=== PATIENT | male | born 1965 | race Caucasian/White ===

== ENCOUNTER 2017-03-04 17:47 | Emergency (ER) | payer OTHER ==
[2017-03-04] MEDS: IV NORMAL SALINE 1000ML BAG 1,000 ML IV (18:30)
[2017-03-04 18:33] LABS: ADD MAN DIFF? NO
[2017-03-04 18:35] LABS: BASO # 0.1 x10^3/uL (0.0-0.2); BASO % 0 % (0-3); EOS % 0 % (0-3); HEMATOCRIT 48.5 % (39.0-53.0); HEMOGLOBIN 16.6 g/dL (13.0-17.5); LYMPH # 1.5 x10^3/uL (1.0-4.8); LYMPH % 11 % (24-48); MEAN CORPUSCULAR HEMOGLOBIN 31 pg (25-35); MEAN CORPUSCULAR HGB CONC 34 g/dL (31-37); MEAN CORPUSCULAR VOLUME 91 fL (79-100); MONO % 4 % (0-9); NEUT % 84 % (31-73); PLATELET COUNT 197 x10^3/uL (140-400); RED BLOOD COUNT 5.35 x10^6/uL (4.30-5.70); RED CELL DISTRIBUTION WIDTH 13.4 % (11.5-14.5); WHITE BLOOD COUNT 13.5 x10^3/uL (4.0-11.0)
[2017-03-04] MEDS: KETOROLAC 30 MG/ML INJ. IV (18:36)
[2017-03-04] MEDS: ONDANSETRON PF 4 MG/2 ML VIAL. IV (18:36)
[2017-03-04 19:12] LABS: ANION GAP 13 (6-14); BLOOD UREA NITROGEN 21 mg/dL (8-26); BUN/CREATININE RATIO 21 (6-20); CALCIUM 9.1 mg/dL (8.5-10.1); CARBON DIOXIDE 26 mmol/L (21-32); CHLORIDE 104 mmol/L (98-107); GFR 78.8; GLUCOSE 121 mg/dL (70-99); POTASSIUM 4.2 mmol/L (3.5-5.1); SODIUM 143 mmol/L (136-145)
[2017-03-04 19:18] LABS: ALBUMIN 4.5 g/dL (3.4-5.0); ALBUMIN/GLOBULIN RATIO 1.3 (1.0-1.7); ALK PHOS 57 U/L (46-116); ALT (SGPT) 35 U/L (16-63); AST (SGOT) 23 U/L (15-37); TOTAL BILIRUBIN 0.6 mg/dL (0.2-1.0); TOTAL PROTEIN 8.1 g/dL (6.4-8.2)
[2017-03-04] MEDS: HYDROmorphone 2 MG/ML VIAL IV ×2 (19:35→20:53)
[2017-03-04 19:57] LABS: BILIRUBIN,URINE NEGATIVE (NEG); GLUCOSE,URINE NEGATIVE (NEG); NITRITE,URINE NEGATIVE (NEG); PROTEIN,URINE 30 mg/dL (NEG-TRACE); UROBILINOGEN,URINE 0.2 mg/dL (0.2 mg/dL)
[2017-03-04 20:11] LABS: BACTERIA,URINE FEW /HPF (0-FEW); RBC,URINE TNTC /HPF (0-2); SQUAMOUS EPITHELIAL CELL,UR OCC /LPF
[2017-03-04] MEDS: TAMSULOSIN 0.4 MG CAP.ER.24H. PO (20:53)
== END 2017-03-04 21:30 | disposition home or self-care (01) ==
LOC: ER 17:47
DX: N23 Unspecified renal colic (principal); D72.829 Elevated white blood cell count, unspecified; K46.9 Unspecified abdominal hernia without obstruction or gangrene; R31.29 Other microscopic hematuria; Z87.442 Personal history of urinary calculi
CPT/HCPCS: 36415; 74176; 80053; 81001; 83690; 85025; 96361; 96374; 96375; 96376; 99283; 99285-25; J1170; J1885; J2405; J7030

== ENCOUNTER → 2020-03-12 | Outpatient (CLI) | payer OTHER ==
[2017-03-04 21:04] VITALS: BP 127/81
[~2020-03-12] MED LIST: HYDR-3164 PO; TAMS0.4C97 PO
--- NOTE | 2020-03-12 16:37 | KCIC ---
MR CERVICAL SPINE WO History:Reason: OSTEOARTHITIS OF SPINE/CERVICAL RADICULOPATHY / Spl. Instructions: / History: Neck p ain x 2 mths. LUE pain and numbness, NKI. Technique: Multiplanar, multi sequential noncontrast MR imaging was performed of the cervical spine. Comparison: None Findings: Normal vertebral body height and alignment. No fracture. Degenerative endplate edema most prominent C 3-C4 and C5-C6. No pathologic signal abnormality within the cervical spinal cord. C2-C3: Left central posterior disc osteophyte complex. No canal narrowing. Uncovertebral and facet a rthropathy. Moderate left neuroforaminal narrowing. No right neuroforaminal narrowing. C3-C4: Posterior disc osteophyte complex. Mild canal narrowing. Uncovertebral and facet arthropathy. Severe bilateral neuroforaminal narrowing. C4-C5: No canal narrowing. Uncovertebral and facet arthropathy. Moderate bilateral neuroforaminal na rrowing. C5-C6: Posterior disc osteophyte complex eccentric to the left. Mild canal narrowing. Cord flattenin g most prominent left. Uncovertebral and facet arthropathy. Severe left and mild right neuroforaminal narrowing. C6-C7: Disc osteophyte complex with bilateral paracentral disc protrusions. Moderate to severe cuco l narrowing with cord flattening. Uncovertebral and facet arthropathy. Severe left and moderate right neuroforaminal narrowing. C7-T1: Paracentral disc protrusions. Mild canal narrowing. Cord flattening most prominent left. Unco vertebral and facet arthropathy. No neuroforaminal narrowing. Upper thoracic facet arthropathy with mild neural foraminal narrowing. Impression: 1. Moderate multilevel cervical spondylosis most prominent C6-C7. 2. C6-C7 disc protrusion contributing to moderate to severe canal narrowing with cord flattening. 3. Multilevel neuroforaminal narrowing most prominent bilateral C3-C4, left C5-C6 and left C6-C7. Electronically signed by: Elmer Connor DO (03/12/2020 4:35 PM) [id number]
== END ==
LOC: KCIC MRI 10:02
PROVIDERS: ATTEND Family Medicine
DX: M47.22 Other spondylosis with radiculopathy, cervical region (principal); M50.123 Cervical disc disorder at C6-C7 level with radiculopathy; M48.02 Spinal stenosis, cervical region; M51.24 Other intervertebral disc displacement, thoracic region; M25.78 Osteophyte, vertebrae; M12.88 Other specific arthropathies, not elsewhere classified, other specified site
CPT/HCPCS: 72141